=== PATIENT | female | born 1975 | race Caucasian/White ===

== ENCOUNTER 2018-01-08 21:27 | Emergency (ER) | payer OTHER ==
[2018-01-08 21:34] VITALS: BP 140/79; PULSE 96; TEMP 98; BMI 41.1
--- NOTE | 2018-01-08 21:52 | PDOC ---
History of Present Illness - General Chief Complaint: Bite Stated Complaint: TICK BITE Time Seen by Provider: 01/08/18 21:36 History Source: Patient - History of Present Illness Timing/Duration: reports: other (tonight) Location: reports: other (neck) Past History - Past Medical History Allergies/Adverse Reactions: Allergies Allergy/AdvReac Type Severity Reaction Status Date / Time ciprofloxacin [From Cipro] Allergy Verified 01/08/18 21:34 COPD: No - Suicide/Smoking/Psychosocial Hx Smoking History: Never smoked Review of Systems - Review of Systems Able to Perform ROS?: Yes Constitutional: No: Chills, Fever, Malaise Integumentary: No: Rash *Physical Exam - Vital Signs Last Vital Signs Temp Pulse Resp BP Pulse Ox 98 F 96 H 18 140/79 99 01/08/18 21:31 01/08/18 21:31 01/08/18 21:31 01/08/18 21:31 01/08/18 21:31 - Physical Exam General Appearance: Yes: Appropriately Dressed. No: Apparent Distress HEENT: positive: Normal Voice Neck: positive: Supple Integumentary: positive: Dry, Warm. negative: Rash Neurologic: positive: Fully Oriented, Alert, Normal Mood/Affect Medical Decision Making - Medical Decision Making 01/08/18 21:46 42-year-old female, no significant history, here for evaluation after removing a tick from her neck tonight. Patient states shortly after returning home after a walk in the [facility], noticed tick embedded in her left neck and was able to remove it intact. States she has tick in a ziplock bag on her person and that tick is still alive. Denies any symptoms at this at this time. Discussed with pt that she meets none of the criteria for abx prophylaxis *DC/Admit/Observation/Transfer Diagnosis at time of Disposition: Tick bite Qualifiers: Encounter type: initial encounter Qualified Code(s): W57.XXXA - Bitten or stung by nonvenomous insect and other nonvenomous arthropods, initial encounter - Discharge Dispostion Disposition: HOME Condition at time of disposition: Good - Referrals - Patient Instructions Printed Discharge Instructions: How to Remove a Tick Additional Instructions: As discussed in ED, there was no indication for prophylactic antibiotics at this time as you do not need any of the criteria. We did send tick to lab for identification and will call you with results If you develop symptoms as discussed in ED, please return immediately - Post Discharge Activity
--- NOTE | 2018-01-10 09:24 | PDOC ---
Patient Follow-up (Call Back) - Post ED Follow - Up Condition at time of discharge: Good Disposition at time of original discharge: HOME Reason for Call Back: Abnwl. Lab (Lyme identification- ixodes scapularis is the vector of lyme disease. Pt had embedded tick < 48 hrs ago and meets criteria for single dose. 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
== END 2018-01-08 22:13 | disposition home or self-care (01) ==
LOC: JERFT 21:27
DX: S10.86XA Insect bite of other specified part of neck, initial encounter (principal); W57.XXXA Bitten or stung by nonvenomous insect and other nonvenomous arthropods, initial encounter; Y93.01 Activity, walking, marching and hiking; Y92.830 Public park as the place of occurrence of the external cause; Y99.8 Other external cause status
CPT/HCPCS: 87168; 99281-25

== ENCOUNTER 2020-05-23 11:17 | Emergency (ER) | payer OTHER ==
[2020-05-23 11:29] VITALS: TEMP 98.6; BMI 41.5
[2020-05-23] MEDS ORDERED: BAMLANIVIMAB 700 MG, ETESEVIMAB 1,400 MG in SODIUM CHLORIDE 250 ML IVPB ONE (12:03)
[2020-05-23 12:52] LABS: BASO % 0.7 % (0-2.0); EOS % 1.2 % (0-4.5); HEMATOCRIT 37.3 % (32.4-45.2); HEMOGLOBIN 12.5 GM/dL (10.7-15.3); LYMPH % 23.3 % (8-40); MCH 29.4 pg (25.7-33.7); MCHC 33.4 g/dl (32.0-36.0); MEAN PLT VOLUME 8.9 fl (7.5-11.1); MONO % 8.6 % (3.8-10.2); NEUT % 66.2 % (42.8-82.8); PLATELET COUNT 294 K/MM3 (134-434); RBC 4.24 M/mm3 (3.60-5.2); RDW 14.6 % (11.6-15.6); WHITE BLOOD COUNT 5.1 K/mm3 (4.0-10.0)
[2020-05-23 13:17] LABS: POTASSIUM 4.8 mmol/L (3.5-5.1)
[2020-05-23 13:18] LABS: CALCIUM 9.1 mg/dL (8.5-10.1)
[2020-05-23 13:19] LABS: BLOOD UREA NITROGEN 9.7 mg/dL (7-18)
[2020-05-23 13:22] LABS: CREATININE 0.8 mg/dL (0.55-1.3)
[2020-05-23 14:59] VITALS: BP 135/74; PULSE 84
== END 2020-05-23 15:23 | disposition home or self-care (01) ==
LOC: JER 11:17
DX: U07.1 COVID-19 (principal)
CPT/HCPCS: 36415; 80048; 85025; 99284-25; M0239; Q0239; Q0245

== ENCOUNTER 2021-07-09 10:50 | Inpatient (IN) | payer BC, OTHER ==
[2021-07-09] MEDS ORDERED: MAG HYDROX/AL HYDROX/SIMETH 30 ML UNIT-DOSE CUP PO ONE (12:38)
[2021-07-09] MEDS ORDERED: MAG HYDROX/AL HYDROX/SIMETH 30 ML UNIT-DOSE CUP ONE (13:23)
[2021-07-09 13:39] LABS: BASO % 0.8 % (0-2.0); EOS % 0.8 % (0-4.5); HEMATOCRIT 36.4 % (32.4-45.2); HEMOGLOBIN 11.8 GM/dL (10.7-15.3); LYMPH % 13.6 % (8-40); MCH 27.7 pg (25.7-33.7); MCHC 32.5 g/dl (32.0-36.0); MEAN CELL VOLUME 85.4 fl (80-96); MEAN PLT VOLUME 8.3 fl (7.5-11.1); MONO % 3.7 % (3.8-10.2); NEUT % 81.1 % (42.8-82.8); PLATELET COUNT 339 10^3/uL (134-434); RBC 4.27 M/mm3 (3.60-5.2); WHITE BLOOD COUNT 10.2 K/mm3 (4.0-10.0)
[2021-07-09 14:10] LABS: CALCIUM 8.7 mg/dL (8.5-10.1)
[2021-07-09 14:11] LABS: ALBUMIN 3.4 g/dl (3.4-5.0)
[2021-07-09 14:15] LABS: BILIRUBIN,TOTAL 0.8 mg/dL (0.2-1); TOT PROT 7.2 g/dl (6.4-8.2)
[2021-07-09 14:20] LABS: BLOOD UREA NITROGEN 12.8 mg/dL (7-18); CREATININE 0.7 mg/dL (0.55-1.3)
[2021-07-09] MEDS ORDERED: PIPERACILLIN/TAZOB 4.5 GM 4.5 GM in DEXTROSE 5%-WATER 100 ML IVPB ONE (15:57)
[2021-07-09] MEDS ORDERED: PIPERACILLIN/TAZOB 4.5 GM 4.5 GM/100 ML BAG IVPB ONE (16:41)
[2021-07-09] MEDS ORDERED: ACETAMINOPHEN 1000 MG/100 ML BAG IVPB PRN (16:54)
[2021-07-09] MEDS ORDERED: ONDANSETRON 4 MG/2 ML VIAL IVPUSH PRN (16:54)
[2021-07-09] MEDS ORDERED: SODIUM CHLORIDE 1,000 ML IV SCH (17:00)
[2021-07-09] MEDS ORDERED: PIPERACILLIN/TAZOB 3.375 GM 3.375 GM in DEXTROSE 5%-WATER - 50 ML IVPB SCH ×2 (18:00→22:00)
[2021-07-09 18:40] LABS: INR 1.04 (0.83-1.09)
[2021-07-09] MEDS ORDERED: IBUPROFEN 800 MG/8 ML IJ IVPB PRN (20:00)
[2021-07-09] MEDS ORDERED: ACETAMINOPHEN INJECTION 100 ML IVPB ONE (20:23)
[2021-07-09] MEDS ORDERED: PIPERACILLIN/TAZOB 3.375 GM 3.375 GM/50 ML BAG IVPB ONE (21:32)
[2021-07-10 00:06] VITALS: BMI 39.9
[2021-07-10] MEDS ORDERED: PIPERACILLIN/TAZOBACTAM 3.375 GM VIAL IVPB ONE ×2 (00:15→09:24)
[2021-07-10] MEDS ORDERED: DEXTROSE 5%-WATER - 50 ML IVPB ONE ×2 (00:16→09:24)
[2021-07-10] MEDS: PIPERACILLIN/TAZOB 3.375 GM 3.375 GM in DEXTROSE 5%-WATER - 50 ML IVPB SCH ×4 (01:04→15:49)
[2021-07-10 09:12] LABS: BASO % 0.8 % (0-2.0); EOS % 0.5 % (0-4.5); HEMATOCRIT 35.6 % (32.4-45.2); HEMOGLOBIN 11.8 GM/dL (10.7-15.3); LYMPH % 10.3 % (8-40); MCHC 33.1 g/dl (32.0-36.0); MEAN CELL VOLUME 84.5 fl (80-96); MEAN PLT VOLUME 7.9 fl (7.5-11.1); MONO % 3.8 % (3.8-10.2); NEUT % 84.6 % (42.8-82.8); PLATELET COUNT 316 10^3/uL (134-434); RBC 4.22 M/mm3 (3.60-5.2); RDW 14.8 % (11.6-15.6); WHITE BLOOD COUNT 10.9 K/mm3 (4.0-10.0)
[2021-07-10 09:43] LABS: CALCIUM 8.4 mg/dL (8.5-10.1)
[2021-07-10 09:44] LABS: ALBUMIN 3.3 g/dl (3.4-5.0); BLOOD UREA NITROGEN 9.9 mg/dL (7-18); MAGNESIUM 2.4 mg/dL (1.8-2.4)
[2021-07-10] MEDS ORDERED: MIDAZOLAM HCL 2 MG/2 ML SINGLE DOSE VIAL ONE (09:44)
[2021-07-10] MEDS ORDERED: PROPOFOL 20 ML ONE ×6 (09:44→11:24)
[2021-07-10 09:46] LABS: CREATININE 0.8 mg/dL (0.55-1.3); PHOSPHOROUS 2.9 mg/dL (2.5-4.9)
[2021-07-10 09:48] LABS: BILIRUBIN,TOTAL 1.2 mg/dL (0.2-1); TOT PROT 6.9 g/dl (6.4-8.2)
[2021-07-10] MEDS ORDERED: ROCURONIUM BROMIDE 50 MG/5 ML SYRINGE ONE ×2 (09:51→11:05)
[2021-07-10] MEDS ORDERED: ACETAMINOPHEN 1000 MG/100 ML BAG IVPB ONE (10:05)
[2021-07-10] MEDS ORDERED: BUPIVACAINE HCL/PF 0.5% (5MG/ML) 10 ML VIAL ONE (10:13)
[2021-07-10] MEDS ORDERED: HYDROmorphone HCl 2 MG/ML VIAL ONE (10:41)
[2021-07-10] MEDS ORDERED: BUPIVACAINE HCL/PF 0.5% (5 MG/ML) 30 ML VIAL IJ ONE (10:50)
[2021-07-10] MEDS ORDERED: NEOSTIGMINE METHYLSULFATE 0.5 MG/ML - 10 ML MDV ONE (11:35)
[2021-07-10] MEDS ORDERED: DEXAMETHASONE SOD PHOSPHATE 4 MG/1 ML VIAL ONE (11:36)
[2021-07-10] MEDS ORDERED: KETOROLAC TROMETHAMINE 30 MG/1 ML VIAL ONE (11:36)
[2021-07-10] MEDS ORDERED: ALBUTEROL SO4 HFA INHALER IH ONE ×3 (12:21→12:25)
[2021-07-10] MEDS ORDERED: SODIUM CHLORIDE 1,000 ML IV SCH (13:10)
[2021-07-10] MEDS ORDERED: ONDANSETRON 4 MG/2 ML VIAL IVPUSH PRN (13:10)
[2021-07-10] MEDS ORDERED: oxyCODONE HCL 5 MG TABLET PO PRN (13:10)
[2021-07-10] MEDS: LACTATED RINGERS SOLUTION 1,000 ML IV SCH (15:45)
[2021-07-10] MEDS ORDERED: ACETAMINOPHEN 500 MG TABLET (FP) PO PRN (19:00)
[2021-07-10] MEDS: KETOROLAC TROMETHAMINE 30 MG/1 ML VIAL IVPUSH SCH (21:57)
[2021-07-11] MEDS: LACTATED RINGERS SOLUTION 1,000 ML IV SCH (05:07)
[2021-07-11] MEDS: KETOROLAC TROMETHAMINE 30 MG/1 ML VIAL IVPUSH SCH (07:04)
[2021-07-11 08:59] VITALS: BP 137/68; PULSE 66; TEMP 98.4
[2021-07-11 10:59] LABS: BASO % 0.2 % (0-2.0); EOS % 0.1 % (0-4.5); HEMATOCRIT 31.1 % (32.4-45.2); HEMOGLOBIN 10.3 GM/dL (10.7-15.3); LYMPH % 17.4 % (8-40); MCH 28.3 pg (25.7-33.7); MCHC 33.1 g/dl (32.0-36.0); MEAN CELL VOLUME 85.6 fl (80-96); MEAN PLT VOLUME 8.5 fl (7.5-11.1); MONO % 5.2 % (3.8-10.2); NEUT % 77.1 % (42.8-82.8); PLATELET COUNT 285 10^3/uL (134-434); RBC 3.64 M/mm3 (3.60-5.2); RDW 14.9 % (11.6-15.6); WHITE BLOOD COUNT 8.8 K/mm3 (4.0-10.0)
[2021-07-11 11:26] LABS: ALBUMIN 2.8 g/dl (3.4-5.0); CALCIUM 8.5 mg/dL (8.5-10.1)
[2021-07-11 11:27] LABS: BLOOD UREA NITROGEN 13.1 mg/dL (7-18); MAGNESIUM 2.3 mg/dL (1.8-2.4)
[2021-07-11 11:29] LABS: CREATININE 0.9 mg/dL (0.55-1.3); PHOSPHOROUS 2.2 mg/dL (2.5-4.9)
[2021-07-11 11:31] LABS: BILIRUBIN,TOTAL 0.7 mg/dL (0.2-1); TOT PROT 6.2 g/dl (6.4-8.2)
[2021-07-11] MEDS ORDERED: NAPH,MB-DB/K PH,MBDB POWDER PACKET PO ONE (11:42)
== END 2021-07-11 12:15 | disposition home or self-care (01) | DRG 419 ==
LOC: JER 10:50 → JERBED 16:05 → J5S 21:58
PROVIDERS: ADMIT Internal Medicine; ATTEND Internal Medicine
PROC: 0FT44ZZ Resection of Gallbladder, Percutaneous Endoscopic Approach (ICD-10-PCS; principal; 2021-07-10 12:30)
DX: K80.00 Calculus of gallbladder with acute cholecystitis without obstruction (principal); R73.03 Prediabetes; J45.909 Unspecified asthma, uncomplicated; Z86.16 Personal history of COVID-19; E66.9 Obesity, unspecified; K76.0 Fatty (change of) liver, not elsewhere classified; Z68.39 Body mass index [BMI] 39.0-39.9, adult
CPT/HCPCS: 36415; 76700-TC; 80053; 82150; 83036; 83690; 83735; 84100; 84439; 84443; 84484; 84702; 85025; 85610; 86850; 86900; 86901; 87040; 88304-TC; 93005; 93010; 94010; 94760; 99285-25; C9803-CS; U0003; U0005